=== PATIENT | male | born 2000 | race Caucasian/White ===

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

== ENCOUNTER 2021-12-17 09:53 | Outpatient (CLI) | payer OTHER | END 2021-12-17 09:54 | disposition home or self-care (01) | LOC: BURCT 09:53 | PROVIDERS: ATTEND Family Medicine | DX: J34.2 Deviated nasal septum (principal) ==

== ENCOUNTER 2022-06-24 12:53 | Outpatient (CLI) | payer OTHER | END 2022-06-24 12:54 | disposition home or self-care (01) | LOC: BURCT 12:53 | PROVIDERS: ATTEND Family Medicine | DX: S00.83XA Contusion of other part of head, initial encounter (principal); V87.7XXA Person injured in collision between other specified motor vehicles (traffic), initial encounter | CPT/HCPCS: 70450 ==

== ENCOUNTER 2023-02-11 23:07 | Emergency (ER) | payer OTHER, SELFPAY ==
[2023-02-12] MEDS ORDERED: Bicillin LA 1.2 MILLION UNITS/2 ML SYRINGE ONE (00:52)
[2023-02-12 01:00] LABS: SARS-CoV-2 NAA Rapid Test Not Detected (NotDetected)
== END 2023-02-12 01:26 | disposition home or self-care (01) ==
LOC: BURERS 23:07
DX: J02.0 Streptococcal pharyngitis (principal)
CPT/HCPCS: 87430; 87804; 96372; 99283; J0561; U0002